=== PATIENT | male | born 1970 | race Caucasian/White ===

== ENCOUNTER 2018-08-10 06:05 | Day surgery (SDC) | payer BC ==
[~2018-08-10 06:05] MED LIST: Buffered Lidocaine 1% SYRIN* 1 ML/SYRINGE INTRADERM ONE; Dexamethasone IV* 4 MG/ML 1 ML (4 MG) IV SLOW PU ONE; DiMENhydriNATE IV* 50 MG/ML VIAL IV PUSH PRN; Famotidine IV* 10 MG/ML 2 ML (20 mg) IV ONE; Lactated Ringers 1000 ML Bag* 1,000 ML IV SCH; Morphine VIAL* 4 MG/ML VIAL (1 ml vial) IV PRN; Naloxone* 0.4 MG/ML 1 ML VIAL IV PRN; Ondansetron INJ* 2 MG/ML VIAL IV ONE; PROCHLORPERAZINE INJ 5 MG/ML 2 ML VIAL IV PRN; fentaNYL* 50 MCG/ML 2 ML VIAL (100 MCG VIAL) IV PRN
[2018-08-10] MEDS ORDERED: Buffered Lidocaine 1% SYRIN* 1 ML/SYRINGE INTRADERM ONE (06:40)
[2018-08-10] MEDS ORDERED: Ondansetron INJ* 2 MG/ML VIAL ONE (06:40)
[2018-08-10] MEDS ORDERED: Dexamethasone IV* 4 MG/ML 1 ML (4 MG) ONE (06:40)
[2018-08-10] MEDS ORDERED: Famotidine IV* 10 MG/ML 2 ML (20 mg) ONE (06:40)
[2018-08-10] MEDS ORDERED: fentaNYL* 50 MCG/ML 5 ML VIAL (250 MCG VIAL) ONE (07:31)
[2018-08-10] MEDS ORDERED: Midazolam* 1 MG/ML 5 ML VIAL (5 MG) ONE (07:31)
[2018-08-10] MEDS ORDERED: Lidocaine 2% PF * 5 ML VIAL ONE (08:26)
[2018-08-10] MEDS ORDERED: Phenylephrine IV* 40 MCG/ML 10 ML SYRINGE ONE (08:26)
[2018-08-10] MEDS ORDERED: EPHEDrine (Pressors)* 50 MG/ML VIAL ONE (08:27)
[2018-08-10] MEDS ORDERED: Propofol* 10 MG/ML 20 ML BTL ONE (08:27)
[2018-08-10] MEDS ORDERED: Succinylcholine* 20 MG/ML 10 ML VIAL ONE (08:27)
[2018-08-10] MEDS ORDERED: Flumazenil* 0.1 MG/ML 5 ML MDV ONE (08:33)
[2018-08-10 09:26] VITALS: BP 157/81
--- NOTE | 2018-08-10 12:44 | PRO ---
CC: DEMI Cole * DATE OF PROCEDURE: 08/10/2018 - [facility] PROCEDURE PERFORMED: EGD with esophageal stricture balloon dilatation. MEDICATIONS GIVEN: Anesthesia per the anesthesia staff. INDICATION: Dysphagia. PROCEDURE: After the EGD procedure, including the risks, benefits, and alternatives, not limited to perforation, surgery and/or were explained to the patient, written consent was then obtained. IV medication was given per the anesthesia staff and a bite-block was placed between the teeth. An Olympus gastroscope was then inserted into the patient's mouth, advanced down the esophagus to the mid esophagus. As before, there is a fairly tight stricture located at approximately 22 to 23 cm from the incisors. I had balloon dilated him to 12 mm approximately a month ago. I could not get the scope through the stricture back then and this time around I could not again either. I then placed a TTS balloon dilator 12-13.5-15 mm through the scope and slowly and gently inserted it through the stricture. I passed with ease and no resistance. I then withdrew the scope back just a little bit and inflated the balloon to approximately 11 mm. It was held in place for 30 seconds. No occlusion occurred and there was minimal resistance. We then inflated to 12 mm for 30 seconds. There was slight resistance and when deflated there was no mucosal tear and then it was re-inflated to 13.5 mm, held in place for 30 seconds, more resistance was encountered when deflated. Again, no mucosal tear. I still was unable to advance the scope through the stricture and then I inflated the balloon to 15 mm, held in place for 30 seconds with very good occlusion and resistance and then deflated the balloon after 30 seconds and there was a small mucosal tear. No bleeding was seen. I was then able to easily advance the scope through the stricture into the body of the stomach. Retroflex and forward views were unremarkable, except for mild gastritis and a CLOtest was obtained. Then the scope was advanced through a widely patent pylorus, into the duodenal bulb, and into the distal duodenum. The scope was then withdrawn back to the stricture where the postdilatation appearance was satisfactory. The scope was then withdrawn from the patient. He tolerated the procedure well and was returned to the recovery room in stable condition. IMPRESSION: 1. Complete upper endoscopy into the distal duodenum with TTS balloon dilatation of proximal esophageal stricture and biopsy. 2. Proximal esophageal stricture at 22 to 23 mm, status post balloon dilatation. Please see the body of the report. 3. Biopsy for CLOtest. 4. I would like the patient to stay on liquids and soft foods for today and advance his diet as tolerates. He can follow-up with me as needed. [id number]/[facility] #: [id number] FRANCISCA
== END 2018-08-10 09:28 | disposition home or self-care (01) ==
LOC: OR 06:05
PROVIDERS: ATTEND Internal Medicine Gastroenterology
DX: K22.2 Esophageal obstruction (principal); R13.19 Other dysphagia; I10 Essential (primary) hypertension; R10.12 Left upper quadrant pain; R73.03 Prediabetes; E66.01 Morbid (severe) obesity due to excess calories
CPT/HCPCS: 87077; J0330; J1100; J2250; J2405; J2704; J3010

== ENCOUNTER 2021-10-20 10:40 | Inpatient (IN) ==
[2021-10-20] MEDS ORDERED: Albuterol/Ipratropium NEB.SOL (2.5/0.5 MG) 3 ML NEB.SOLN INH ONE (10:58)
[2021-10-20] MEDS ORDERED: cefTRIAXone 2 gm/50 mL D5W 2 GM/50 ML BAG IV ONE (11:36)
[2021-10-20] MEDS ORDERED: Lactated Ringers 1000 ml BAG 1,000 ML IV ONE ×2 (11:36→13:23)
[2021-10-20] MEDS ORDERED: Azithromycin 500 mg/250 ml NS 500 MG/250 ML BAG IVPB ONE (11:36)
[2021-10-20 12:44] LABS: ABS Lymphocytes 1.3 10^3/ul (1.0-4.8); ABS Monocytes 0.7 10^3/ul (0-0.8); ABS Neutrophils 17.4 10^3/ul (1.5-7.7); Eosinophil % 0.1 %; Hematocrit 38 % (42-52); Hemoglobin 12.1 g/dL (14.0-18.0); Lymphocyte % 6.5 %; Mean Corpuscular HGB Conc 32 g/dL (31-36); Mean Corpuscular Hemoglobin 29 pg (27-31); Mean Corpuscular Volume 90 fL (80-94); Mean Platelet Volume 8.2 fL (7.4-10.4); Nucleated Red Blood Cells % 0.1; Platelet Count 314 10^3/uL (150-450); Red Blood Count 4.15 10^6 /uL (4.18-5.48); Red Cell Distribution Width 14 % (10-15); White Blood Count 19.5 10^3/uL (3.5-10.8)
[2021-10-20 13:12] LABS: Albumin 4.4 g/dL (3.2-5.2); Albumin/Globulin Ratio 1.8 (1-3); Calcium 8.6 mg/dL (8.6-10.3); Globulin 2.4 g/dL (2-4); Potassium 4.1 mmol/L (3.5-5.0); Total Bilirubin 0.4 mg/dL (0.2-1.0); Total Protein 6.8 g/dL (6.4-8.9); eGFR CKD-EPI 96.3 (>60)
[2021-10-20] MEDS ORDERED: Piperacillin/Tazobac ADVAN 3.375 GM in NS 0.9% 100 ml BAG 100 ML IV ONE (14:29)
[2021-10-20] MEDS ORDERED: Remdesivir 100 mg Vial 100 MG in NS 0.9% 250 ml 230 ML IV SCH (14:30)
[2021-10-20] MEDS ORDERED: Zosyn per Pharmacy NOTE FOLLOW UP SCH (15:00)
[2021-10-20] MEDS ORDERED: Remdesivir 100 mg Vial 200 MG in NS 0.9% 250 ml 210 ML IV ONE (16:00)
[2021-10-20] MEDS ORDERED: Piperacillin/Tazobac 3.375 GM BAG ONE (16:31)
[2021-10-20] MEDS: methylPREDNISolone SOD SUCC 40 mg/ml 1 ml VIAL IV SCH ×2 (16:48→23:07)
[2021-10-20] MEDS: Enoxaparin 40 MG/0.4 ML SYR SUBCUT SCH (17:03)
[2021-10-20 17:38] LABS: INR 1.2 (0.86-1.15)
[2021-10-20] MEDS ORDERED: Azithromycin 500 mg/250 ml NS 500 MG/250 ML BAG IVPB SCH (18:00)
[2021-10-20 18:10] LABS: Potassium 4.3 mmol/L (3.5-5.0)
[2021-10-20 18:11] LABS: Albumin 4.2 g/dL (3.2-5.2); Albumin/Globulin Ratio 1.8 (1-3); Calcium 8.2 mg/dL (8.6-10.3); Globulin 2.4 g/dL (2-4); Total Bilirubin 0.4 mg/dL (0.2-1.0); Total Protein 6.6 g/dL (6.4-8.9); eGFR CKD-EPI 108.2 (>60)
[2021-10-20] MEDS: Linezolid 600 MG IVPREMIX(*) 600 MG/300 ML BAG IVPB SCH (21:56)
[2021-10-20] MEDS ORDERED: hydrALAZINE 20 mg/ml 1 ML Vial IV IV SLOW PU ONE (22:19)
[2021-10-20] MEDS: ZOSYN 3.375 GM Q8H per EXTENDED INFUSION IV SCH (23:04)
[2021-10-21 04:51] LABS: ABS Lymphocytes 1.2 10^3/ul (1.0-4.8); ABS Monocytes 0.7 10^3/ul (0-0.8); ABS Neutrophils 13.5 10^3/ul (1.5-7.7); Hematocrit 31 % (42-52); Hemoglobin 10.4 g/dL (14.0-18.0); Lymphocyte % 7.8 %; Mean Corpuscular HGB Conc 33 g/dL (31-36); Mean Corpuscular Hemoglobin 31 pg (27-31); Mean Corpuscular Volume 92 fL (80-94); Mean Platelet Volume 8.7 fL (7.4-10.4); Platelet Count 263 10^3/uL (150-450); Red Blood Count 3.41 10^6 /uL (4.18-5.48); Red Cell Distribution Width 14 % (10-15); White Blood Count 15.4 10^3/uL (3.5-10.8)
[2021-10-21 04:57] LABS: INR 1.15 (0.86-1.15)
[2021-10-21 05:33] LABS: Albumin 4.2 g/dL (3.2-5.2); Albumin/Globulin Ratio 1.8 (1-3); Globulin 2.3 g/dL (2-4); Magnesium 1.3 mg/dL (1.9-2.7); Potassium 4.3 mmol/L (3.5-5.0); Total Bilirubin 0.5 mg/dL (0.2-1.0); Total Protein 6.5 g/dL (6.4-8.9); eGFR CKD-EPI 104.8 (>60)
[2021-10-21] MEDS: ZOSYN 3.375 GM Q8H per EXTENDED INFUSION IV SCH ×3 (05:44→20:14)
[2021-10-21] MEDS ORDERED: Magnesium Sulf 4 GM/100 ML IV 4,000 MG/100 ML BAG IVPB ONE (06:24)
[2021-10-21] MEDS: methylPREDNISolone SOD SUCC 40 mg/ml 1 ml VIAL IV SCH ×3 (07:13→23:14)
[2021-10-21] MEDS ORDERED: Lisinopril/HCTZ 20/25 TAB (NF) PO SCH (09:00)
[2021-10-21] MEDS: Multivitamins/Minerals TAB PO SCH ×2 (09:09→09:11)
[2021-10-21] MEDS: CMCS: OMEGA-3 FATTY ACID 1000 mg(NF) PO SCH (09:11)
[2021-10-21] MEDS: Linezolid 600 MG IVPREMIX(*) 600 MG/300 ML BAG IVPB SCH (09:33)
[2021-10-21] MEDS ORDERED: Magnesium Sulfate IV 3 GM in NS 0.9% 100 ml BAG 100 ML IVPB ONE (10:30)
[2021-10-21] MEDS ORDERED: Magnesium Sulfate 2 GM IV (Premix) IVPB ONE (10:30)
[2021-10-21] MEDS ORDERED: Magnesium Sulfate 1 GM IV 1 GM/100 ML BAG IV ONE (11:30)
[2021-10-21] MEDS: Azithromycin 500 mg/250 ml NS 500 MG/250 ML BAG IVPB SCH (13:41)
[2021-10-21] MEDS: Enoxaparin 40 MG/0.4 ML SYR SUBCUT SCH (16:17)
[2021-10-21] MEDS: Remdesivir 100 mg Vial 100 MG in NS 0.9% 250 ml 230 ML IV SCH (20:13)
[2021-10-22 04:14] LABS: INR 1.11 (0.86-1.15)
[2021-10-22 04:29] LABS: ALT 42 U/L (7-52); Albumin 4.3 g/dL (3.2-5.2); Albumin/Globulin Ratio 1.7 (1-3); Alkaline Phosphatase 36 U/L (35-149); Blood Urea Nitrogen 23 mg/dL (6-24); CO2 Carbon Dioxide 27 mmol/L (22-32); Calcium 8.3 mg/dL (8.6-10.3); Chloride 94 mmol/L (101-111); Globulin 2.5 g/dL (2-4); Glucose 178 mg/dL (70-100); Sodium 130 mmol/L (135-145); Total Protein 6.8 g/dL (6.4-8.9); eGFR CKD-EPI 96.3 (>60)
[2021-10-22 04:47] LABS: Anion Gap 9 mmol/L (2-11)
[2021-10-22] MEDS: ZOSYN 3.375 GM Q8H per EXTENDED INFUSION IV SCH ×3 (05:05→21:09)
[2021-10-22] MEDS: methylPREDNISolone SOD SUCC 40 mg/ml 1 ml VIAL IV SCH ×3 (06:07→23:39)
[2021-10-22 06:54] LABS: Magnesium 2.6 mg/dL (1.9-2.7)
[2021-10-22 07:02] LABS: Potassium Redraw 4.1 mmol/L (3.5-5.0)
[2021-10-22] MEDS: CMCS: OMEGA-3 FATTY ACID 1000 mg(NF) PO SCH ×2 (09:25→09:28)
[2021-10-22] MEDS: Multivitamins/Minerals TAB PO SCH (09:26)
[2021-10-22] MEDS: Azithromycin 500 mg/250 ml NS 500 MG/250 ML BAG IVPB SCH (13:10)
[2021-10-22 13:51] LABS: ABS Lymphocytes 1.5 10^3/ul (1.0-4.8); ABS Monocytes 1.5 10^3/ul (0-0.8); ABS Neutrophils 17.9 10^3/ul (1.5-7.7); Hematocrit 33 % (42-52); Hemoglobin 10.3 g/dL (14.0-18.0); Lymphocyte % 6.9 %; Mean Corpuscular HGB Conc 32 g/dL (31-36); Mean Corpuscular Hemoglobin 30 pg (27-31); Mean Corpuscular Volume 94 fL (80-94); Mean Platelet Volume 8.7 fL (7.4-10.4); Platelet Count 262 10^3/uL (150-450); Red Blood Count 3.49 10^6 /uL (4.18-5.48); Red Cell Distribution Width 14 % (10-15); White Blood Count 20.9 10^3/uL (3.5-10.8)
[2021-10-22] MEDS: Enoxaparin 40 MG/0.4 ML SYR SUBCUT SCH (15:51)
[2021-10-22] MEDS: Remdesivir 100 mg Vial 100 MG in NS 0.9% 250 ml 230 ML IV SCH (20:28)
[2021-10-23] MEDS: Lidocaine PATCH 5% PATCH TRANSDERM SCH ×3 (04:50→23:03)
[2021-10-23 05:40] LABS: ABS Eosinophils 0.1 10^3/ul (0-0.6); ABS Lymphocytes 1.2 10^3/ul (1.0-4.8); ABS Monocytes 1.5 10^3/ul (0-0.8); ABS Neutrophils 17.2 10^3/ul (1.5-7.7); Eosinophil % 0.4 %; Hematocrit 30 % (42-52); Hemoglobin 9.7 g/dL (14.0-18.0); Mean Corpuscular HGB Conc 33 g/dL (31-36); Mean Corpuscular Hemoglobin 30 pg (27-31); Mean Corpuscular Volume 93 fL (80-94); Mean Platelet Volume 8.5 fL (7.4-10.4); Platelet Count 300 10^3/uL (150-450); Red Cell Distribution Width 14 % (10-15)
[2021-10-23 05:52] LABS: INR 1.19 (0.86-1.15)
[2021-10-23] MEDS: ZOSYN 3.375 GM Q8H per EXTENDED INFUSION IV SCH ×3 (06:10→20:28)
[2021-10-23 06:14] LABS: Albumin 4.3 g/dL (3.2-5.2); Albumin/Globulin Ratio 1.8 (1-3); Calcium 8.4 mg/dL (8.6-10.3); Globulin 2.4 g/dL (2-4); Magnesium 2.3 mg/dL (1.9-2.7); Potassium 4.7 mmol/L (3.5-5.0); Total Bilirubin 0.7 mg/dL (0.2-1.0); Total Protein 6.7 g/dL (6.4-8.9); eGFR CKD-EPI 104.8 (>60)
[2021-10-23] MEDS: methylPREDNISolone SOD SUCC 40 mg/ml 1 ml VIAL IV SCH ×3 (08:53→23:08)
[2021-10-23] MEDS: Multivitamins/Minerals TAB PO SCH ×2 (08:53→08:58)
[2021-10-23] MEDS: CMCS: OMEGA-3 FATTY ACID 1000 mg(NF) PO SCH (08:54)
[2021-10-23] MEDS: Enoxaparin 40 MG/0.4 ML SYR SUBCUT SCH ×2 (15:33→17:12)
[2021-10-23] MEDS: Remdesivir 100 mg Vial 100 MG in NS 0.9% 250 ml 230 ML IV SCH (20:29)
[2021-10-24] MEDS: ZOSYN 3.375 GM Q8H per EXTENDED INFUSION IV SCH ×3 (04:24→20:41)
[2021-10-24 05:36] LABS: ABS Lymphocytes 1.2 10^3/ul (1.0-4.8); ABS Monocytes 1.1 10^3/ul (0-0.8); ABS Neutrophils 13.2 10^3/ul (1.5-7.7); Hematocrit 30 % (42-52); Hemoglobin 9.5 g/dL (14.0-18.0); Lymphocyte % 7.5 %; Mean Corpuscular HGB Conc 32 g/dL (31-36); Mean Corpuscular Hemoglobin 30 pg (27-31); Mean Corpuscular Volume 92 fL (80-94); Mean Platelet Volume 8.6 fL (7.4-10.4); Platelet Count 286 10^3/uL (150-450); Red Blood Count 3.21 10^6 /uL (4.18-5.48); Red Cell Distribution Width 14 % (10-15); White Blood Count 15.6 10^3/uL (3.5-10.8)
[2021-10-24 05:46] LABS: INR 1.2 (0.86-1.15)
[2021-10-24 06:03] LABS: Albumin 3.9 g/dL (3.2-5.2); Magnesium 2.3 mg/dL (1.9-2.7); Potassium 4.7 mmol/L (3.5-5.0); Total Bilirubin 0.7 mg/dL (0.2-1.0)
[2021-10-24 06:09] LABS: Albumin/Globulin Ratio 1.6 (1-3); Globulin 2.4 g/dL (2-4); Total Protein 6.3 g/dL (6.4-8.9); eGFR CKD-EPI 107.8 (>60)
[2021-10-24] MEDS: methylPREDNISolone SOD SUCC 40 mg/ml 1 ml VIAL IV SCH ×3 (07:53→20:42)
[2021-10-24] MEDS: Multivitamins/Minerals TAB PO SCH (07:57)
[2021-10-24] MEDS: CMCS: OMEGA-3 FATTY ACID 1000 mg(NF) PO SCH (07:57)
[2021-10-24] MEDS: Lidocaine PATCH 5% PATCH TRANSDERM SCH (07:57)
[2021-10-24] MEDS: Enoxaparin 40 MG/0.4 ML SYR SUBCUT SCH (14:34)
[2021-10-24] MEDS ORDERED: NS 0.9% 250 ml 250 ML ONE (20:33)
[2021-10-24] MEDS ORDERED: NS 0.9% 100 ml BAG 100 ML ONE (20:33)
[2021-10-24] MEDS: Remdesivir 100 mg Vial 100 MG in NS 0.9% 250 ml 230 ML IV SCH (20:42)
[2021-10-25] MEDS ORDERED: NS 0.9% 100 ml BAG 100 ML ONE (04:35)
[2021-10-25] MEDS: ZOSYN 3.375 GM Q8H per EXTENDED INFUSION IV SCH (05:24)
[2021-10-25 06:05] LABS: ABS Lymphocytes 1.4 10^3/ul (1.0-4.8); ABS Monocytes 1.5 10^3/ul (0-0.8); Hematocrit 30 % (42-52); Hemoglobin 9.9 g/dL (14.0-18.0); Lymphocyte % 7.6 %; Mean Corpuscular HGB Conc 33 g/dL (31-36); Mean Corpuscular Hemoglobin 30 pg (27-31); Mean Corpuscular Volume 92 fL (80-94); Mean Platelet Volume 8.4 fL (7.4-10.4); Nucleated Red Blood Cells % 0.1; Platelet Count 364 10^3/uL (150-450); Red Blood Count 3.28 10^6 /uL (4.18-5.48); Red Cell Distribution Width 14 % (10-15); White Blood Count 17.9 10^3/uL (3.5-10.8)
[2021-10-25 06:07] LABS: INR 1.2 (0.86-1.15)
[2021-10-25 06:31] LABS: Albumin/Globulin Ratio 1.5 (1-3); Calcium 8.7 mg/dL (8.6-10.3); Globulin 2.6 g/dL (2-4); Magnesium 2.2 mg/dL (1.9-2.7); Potassium 4.8 mmol/L (3.5-5.0); Total Protein 6.6 g/dL (6.4-8.9); eGFR CKD-EPI 106.2 (>60)
[2021-10-25] MEDS: Lidocaine PATCH 5% PATCH TRANSDERM SCH (07:09)
[2021-10-25] MEDS: Multivitamins/Minerals TAB PO SCH (07:11)
[2021-10-25] MEDS: CMCS: OMEGA-3 FATTY ACID 1000 mg(NF) PO SCH (07:11)
[2021-10-25] MEDS: methylPREDNISolone SOD SUCC 40 mg/ml 1 ml VIAL IV SCH (07:11)
[2021-10-25 09:44] VITALS: BP 144/93
== END 2021-10-25 12:00 | disposition home or self-care (01) | DRG 720 ==
LOC: ED 10:40 → EDHOLD 14:24 → ICU 19:55
PROVIDERS: ADMIT Internal Medicine; ATTEND Internal Medicine